=== PATIENT | male | born 1985 | race Hispanic/Latino ===

== ENCOUNTER 2016-07-24 07:36 | Day surgery (SDC) | payer OTHER ==
[2016-07-24 08:22] VITALS: RESP 16; TEMP 97.8; O2SAT 99
[2016-07-24 08:25] VITALS: BMI 28.8
[2016-07-24] MEDS ORDERED: Propofol 10 mg/ml Inj (20 ML) ONE (09:11)
[2016-07-24 10:43] VITALS: BP 110/68; PULSE 72
== END 2016-07-24 10:45 | disposition home or self-care (01) ==
LOC: C.ENDO 07:36
PROVIDERS: ATTEND Internal Medicine
DX: K29.70 Gastritis, unspecified, without bleeding (principal); Z80.0 Family history of malignant neoplasm of digestive organs
CPT/HCPCS: 43239; 88305; J2704